=== PATIENT | male | born 1960 | race Caucasian/White ===

== ENCOUNTER 2016-11-02 17:13 | Emergency (ER) | payer BC ==
[2016-11-02 17:42] VITALS: BP 133/83
--- NOTE | 2016-11-02 18:02 | UC ---
Upper Extremity HPI - HPI Summary HPI Summary: While gardening yesterday, got thorn stuck in volar aspect of R thumb. Pulled it out, was pretty sure it broke off, then he squeezed it and rinsed it out. Today woke up with significant redness and swelling in R thumb. - History of Current Complaint Chief Complaint: GIOVANNYkin Stated Complaint: RIGHT THUMB PAIN Time Seen by Provider: 11/02/16 17:49 Hx Obtained From: Patient ?: No Onset/Duration: Gradual Onset, Lasting Hours Severity Initially: Mild Severity Currently: Moderate Character: Stiffness Aggravating Factor(s): Movement Associated Signs And Symptoms: Positive: Swelling, Redness Related History: Dominant Hand Right - Allergies/Home Medications Allergies/Adverse Reactions: Allergies Allergy/AdvReac Type Severity Reaction Status Date / Time No Known Allergies Allergy Verified 11/02/16 17:42 PMH/Surg Hx/FS Hx/Imm Hx Previously Healthy: Yes Cardiovascular History Of: Denies: Hypertension Respiratory History Of: Denies: Asthma - Surgical History Surgical History: Yes Surgery Procedure, Year, and Place: B/L leg varicose veins - Family History Known Family History: Positive: Hypertension - Social History Occupation: Employed Full-time - web applications architect Alcohol Use: Occasionally Substance Use Type: None Smoking Status (MU): Never Smoked Tobacco - Immunization History Most Recent Influenza Vaccination: 04/2015 Review of Systems Constitutional: Negative Skin: Other - redness, swelling, possible FB R thumb Eyes: Negative ENT: Negative Respiratory: Negative Cardiovascular: Negative Gastrointestinal: Negative Genitourinary: Negative Motor: Negative Neurovascular: Negative Musculoskeletal: Negative Neurological: Negative Psychological: Negative All Other Systems Reviewed And Are Negative: Yes Physical Exam Triage Information Reviewed: Yes Appearance: Well-Appearing, Well-Nourished Vital Signs: Initial Vital Signs Temp 98.8 F 11/02/16 17:38 Pulse 70 11/02/16 17:38 Resp 16 11/02/16 17:38 BP 133/83 11/02/16 17:38 Pulse Ox 96 11/02/16 17:38 Vital Signs Reviewed: Yes Eye Exam: Normal Eyes: Positive: Conjunctiva Clear ENT Exam: Normal ENT: Positive: Normal ENT inspection, Hearing grossly normal, Pharynx normal, TMs normal Dental Exam: Normal Neck exam: Normal Neck: Positive: Supple, Nontender, No Lymphadenopathy Respiratory Exam: Normal Respiratory: Positive: Chest non-tender, Lungs clear, Normal breath sounds, No respiratory distress, No accessory muscle use Cardiovascular Exam: Normal Cardiovascular: Positive: RRR, No Murmur Musculoskeletal: Positive: ROM Limited @ - R thumb, limited by swelling Neurological Exam: Normal Neurological: Positive: Alert Psychological Exam: Normal Skin Exam: Other - erythema, swelling in R thumb, PW near volar aspect of IP joint Upper Extremity Course/Dx - Differential Dx/Diagnosis Provider Diagnoses: R thumb PW. possible retained FB R thumb. R thumb cellulitis. elevated blood pressure due to discomfort Discharge - Discharge Plan Condition: Stable Disposition: HOME Prescriptions: Cephalexin CAP* [Keflex 500 CAP*] 500 mg PO QID #28 cap Patient Education Materials: Soft Tissue Foreign Body (ED), Cellulitis (ED) Referrals: Aramis Gandara DO [Primary Care Provider] - Additional Instructions: Elevate the infection and do epsom salts warm soaks when possible. I expect the more generalize redness and swelling to resolve quickly. If you have an ongoing painful lump at the site of the foreign body, please return here. If you have sudden or severe worsening in redness, pain, or streaking from the wound, please go to the emergency department.
== END 2016-11-02 18:15 | disposition home or self-care (01) ==
LOC: UCCORT 17:13
DX: S61.031A Puncture wound without foreign body of right thumb without damage to nail, initial encounter (principal); L03.011 Cellulitis of right finger; W60.XXXA Contact with nonvenomous plant thorns and spines and sharp leaves, initial encounter; Y93.H2 Activity, gardening and landscaping; Y92.89 Other specified places as the place of occurrence of the external cause
CPT/HCPCS: 99212; G0463

== ENCOUNTER 2016-11-09 17:05 | Emergency (ER) | payer BC ==
[2016-11-09 18:14] VITALS: BP 140/86
--- NOTE | 2016-11-09 18:29 | UC ---
General HPI - HPI Summary HPI Summary: last week got a piece of wood in his thumb brke kelly something in his thum cam 11/02 put on keflex for a week he still feels like ther ewas something in his finger still red and swollen denies taking anything for pain denies fever and chills - History of Current Complaint Chief Complaint: Kim Stated Complaint: RIGHT THUMB RECHECK Time Seen by Provider: 11/09/16 18:21 Hx Obtained From: Patient - Allergy/Home Medications Allergies/Adverse Reactions: Allergies Allergy/AdvReac Type Severity Reaction Status Date / Time No Known Allergies Allergy Verified 11/09/16 18:14 PMH/Surg Hx/FS Hx/Imm Hx Previously Healthy: Yes Cardiovascular History Of: Denies: Hypertension Respiratory History Of: Denies: Asthma - Surgical History Surgical History: Yes Surgery Procedure, Year, and Place: B/L leg varicose veins - Family History Known Family History: Positive: Hypertension - Social History Alcohol Use: Occasionally Substance Use Type: None Smoking Status (MU): Never Smoked Tobacco - Immunization History Most Recent Influenza Vaccination: 04/2015 Review of Systems Constitutional: Negative Skin: Other - right thumb- redness Eyes: Negative ENT: Negative Respiratory: Negative Cardiovascular: Negative Gastrointestinal: Negative Genitourinary: Negative Motor: Negative Neurovascular: Negative Musculoskeletal: Negative Neurological: Negative Psychological: Negative All Other Systems Reviewed And Are Negative: Yes Physical Exam Triage Information Reviewed: Yes Appearance: No Pain Distress, Well-Nourished Vital Signs: Initial Vital Signs Temp 98.7 F 11/09/16 18:05 Pulse 84 11/09/16 18:05 Resp 16 11/09/16 18:05 BP 140/86 11/09/16 18:05 Pulse Ox 97 11/09/16 18:05 Vital Signs Reviewed: Yes Eyes: Positive: Conjunctiva Clear ENT: Positive: Pharynx normal, TMs normal Neck: Positive: No Lymphadenopathy Respiratory: Positive: Lungs clear, Normal breath sounds, No respiratory distress Cardiovascular: Positive: RRR, No Murmur Musculoskeletal: Positive: Other: - right thumb- area of induation under froegn body insertion site middle phalanx Procedures - Procedure Summary Procedure Summary: thumb cleansed with betadyne abscess opened with splinter forceps - large amount of purulent fluid and blood expressed from thumb sterile bandage applied Course/Dx - Course Course Of Treatment: exam completed. will change antibiotic- continue soaking thumb BID followup with Dr Vance if no improvement - Differential Dx - Multi-Symptom Provider Diagnoses: thumb abscess Discharge - Discharge Plan Condition: Stable Disposition: HOME Prescriptions: Sulfamethox/Trimethoprim DS* [Bactrim DS 800/160 TAB*] 1 tab PO BID #14 tab Patient Education Materials: Abscess (ED) Referrals: Aramis Gandara DO [Primary Care Provider] - Jeaneth Vance MD [Medical Doctor] - Additional Instructions: Please take antibiotic as directed continue to soak your thumb in epsom salts and water BID call DR Vacne if your symptoms do not improve Increase fluids and rest Take acetaminophen or ibuprofen for fever or pain Please review your discharge instructions. If your symptoms do not improve please call your primary care provider or return to urgent care. Your blood pressure is elevated. Please contact your primary care provider within 1 day -4 weeks for further evaluation.
== END 2016-11-09 19:05 | disposition home or self-care (01) ==
LOC: UCCORT 17:05
DX: L02.511 Cutaneous abscess of right hand (principal)
CPT/HCPCS: 10060; 99212; G0463